=== PATIENT | male | born 1955 | race Caucasian/White ===

== ENCOUNTER → 2017-01-07 | Outpatient (CLI) | payer OTHER ==
[2017-01-07 14:51] LABS: BASOPHILS % (AUTO) 0 % (0-2); EOSINOPHILS # (AUTO) 0.1 10^3uL; EOSINOPHILS % (AUTO) 1 % (0-4); LYMPHOCYTES # (AUTO) 2.3 X10^3; MEAN CORPUSCULAR HGB CONC 33.7 g/dL (31.0-37.0); MEAN CORPUSCULAR VOLUME 95 FL (80-100); MEAN PLATELET VOLUME 10.5 FL (6.0-9.5); MONOCYTES % (AUTO) 10 % (3-11); NEUTROPHILS # (AUTO) 6.4 X10^3; NEUTROPHILS % (AUTO) 65 % (51-67); PLATELET COUNT 180 10^3uL (150-450); WHITE BLOOD COUNT 9.85 10^3uL (4.0-11.0)
[2017-01-07 14:52] LABS: MEAN CORPUSCULAR HEMOGLOBIN 32.1 PG (26.0-34.0)
[2017-01-07 15:06] LABS: ALBUMIN 4.8 g/dL (3.4-5.0); ANION GAP 17.7 MEQ/L (3-15); CALCULATED IONIZED CALCIUM 4.1 mg/dL (3.8-4.6); TOTAL PROTEIN 8.7 g/dL (6.4-8.5)
--- NOTE | 2017-01-07 16:52 | Diagnostic Imaging Report ---
INDICATION: M17.4. Osteoarthritis of the knee, bilateral knee pain. COMPARISON STUDY: Bilateral knees dated 12/23/2011. FINDINGS: Three views of the right knee demonstrate no fracture, dislocation, or joint effusion. Large osteophytes are seen off the right patella. These have increased from the previous exam. Joint space narrowing and osteophytes in the medial compartment have slightly worsened. In the left knee, there is joint space narrowing and osteophytes in the medial compartment which appear the same. Mild joint space narrowing in the lateral compartment is stable. Osteophytes in the patellofemoral compartment have not appreciably changed. IMPRESSION: There are degenerative changes of both knees, right worse than the left. These have progressed on the right side since the previous exam in 2011. Dictated by: Dictated on workstation # [id number]
== END ==
LOC: RAD 14:38
PROVIDERS: ATTEND Family Medicine
DX: M17.4 Other bilateral secondary osteoarthritis of knee (principal); D75.1 Secondary polycythemia; I10 Essential (primary) hypertension; E78.4 Other hyperlipidemia; I25.10 Atherosclerotic heart disease of native coronary artery without angina pectoris; E29.1 Testicular hypofunction
CPT/HCPCS: 36415; 80053; 80061; 84403; 84443; 85025

== ENCOUNTER → 2017-01-15 | Outpatient (CLI) | payer OTHER ==
[~2017-01-15] VITALS: Ht 175.3 cm; Wt 104.3 kg
[~2017-01-15] MED LIST: AML5T PO; ASPI325T4 PO; CLON0.1T PO; HYDR12.5 PO; LSNP20T PO; POTA99TA16 PO
[2017-01-15 13:50] VITALS: BP 153/83
--- NOTE | 2017-01-15 14:29 | NUR ---
Documented in Therapeutic Phlebotomy book that blood was wasted in bin.
== END ==
LOC: EUOP 13:23
PROVIDERS: ATTEND Family Medicine
DX: D75.1 Secondary polycythemia (principal)
CPT/HCPCS: 99195